=== PATIENT | male | born 1995 | race Caucasian/White ===

== ENCOUNTER 2022-05-19 20:36 | Emergency (ER) | payer OTHER ==
[~2022-05-19] VITALS: Ht 172.7 cm; Wt 77.3 kg
[2022-05-19] MEDS ORDERED: IBUP80TA PO (22:10)
[2022-05-19] MEDS ORDERED: NORCO, ANEXSIA 5/325MG TABLET (HYDROcodone/ACETAMINOPHEN) PO ONE (22:10)
[2022-05-19 22:33] VITALS: BP 129/72
== END 2022-05-19 23:21 | disposition home or self-care (01) ==
LOC: M ED 20:36
DX: S23.41XA Sprain of ribs, initial encounter (principal); W10.8XXA Fall (on) (from) other stairs and steps, initial encounter; Y92.009 Unspecified place in unspecified non-institutional (private) residence as the place of occurrence of the external cause; Y93.9 Activity, unspecified; Y99.9 Unspecified external cause status